=== PATIENT | female | born 1950 | race Two or more races ===

== ENCOUNTER 2022-10-27 15:55 | Emergency (ER) | payer SELFPAY ==
[~2022-10-27] VITALS: Ht 121.9 cm; Wt 78.0 kg
[2022-10-27 16:05] VITALS: BP 132/69
[2022-10-27 16:46] LABS: Basophils # (auto) 0.2 10 ^3/uL (0-0.2); Basophils % (auto) 1.8 % (0.0-2.0); Eosinophils # (auto) 0.2 10 ^3/uL (0-0.8); Hematocrit 43.8 % (36.0-46.0); Hemoglobin 15.3 g/dL (12.2-16.2); Lymphocytes % (auto) 28.3 % (10.0-50.0); Mean Corpuscular Hemoglobin 31.3 pg (28.0-32.0); Mean Corpuscular Volume 89.4 fL (80.0-100.0); Monocytes # (auto) 0.9 10 ^3/uL (0-1.3); Monocytes % (auto) 8.2 % (0.0-12.0); Neutrophils # (auto) 6.4 10 ^3/uL (1.6-8.6); Neutrophils % (auto) 59.7 % (37.0-80.0); Red Blood Cells 4.89 10^6/uL (4.0-5.20); Red Cell Distribution Width 13.5 % (11.8-14.3); White Blood Cell 10.7 10^3/uL (4.4-10.8)
[2022-10-27 16:49] LABS: Urine Bacteria NONE SEEN /hpf (None Seen); Urine Blood Negative /uL (Negative); Urine Specific Gravity 1.008 (1.001-1.035); Urine WBC 2 /hpf (0 - 5)
[2022-10-27 17:15] LABS: Albumin 3.9 g/dL (3.4-5.0); Calcium 9.1 mg/dL (8.5-10.1); Potassium 4.2 mmol/L (3.5-5.1)
[2022-10-27 17:20] LABS: Bilirubin, Total 0.7 mg/dL (0.2-1.0); Total Protein 7.3 g/dL (6.4-8.2)
== END 2022-10-27 20:48 | disposition home or self-care (01) ==
LOC: ER 15:55
DX: T50.905A Adverse effect of unspecified drugs, medicaments and biological substances, initial encounter (principal); Y92.89 Other specified places as the place of occurrence of the external cause
CPT/HCPCS: 36415; 71045; 80053; 81001; 84484; 85025; 93005

== ENCOUNTER 2023-11-17 18:39 | Emergency (ER) | payer MEDICAID, OTHER ==
[~2023-11-17] VITALS: Ht 149.9 cm; Wt 76.7 kg
[2023-11-17] MEDS ORDERED: PRED10TA PO (22:19)
[2023-11-17] MEDS ORDERED: AZIT-43 PO (22:19)
[2023-11-17] MEDS ORDERED: LORA10CA PO (22:19)
[2023-11-17] MEDS: methylPREDNISolone SOD SUCC 125 MG/2 ML VL IM ONE (22:44)
[2023-11-17] MEDS: LORATADINE 10 MG TAB PO ONE (23:00)
[2023-11-17 23:05] VITALS: BP 134/74; PULSE 88; RESP 18; TEMP 98.8; O2SAT 96
== END 2023-11-17 23:24 | disposition home or self-care (01) ==
LOC: ER 18:39
DX: T78.40XA Allergy, unspecified, initial encounter (principal); J20.9 Acute bronchitis, unspecified; J45.909 Unspecified asthma, uncomplicated; E78.5 Hyperlipidemia, unspecified; I10 Essential (primary) hypertension; Z88.0 Allergy status to penicillin
CPT/HCPCS: 96372; 99283; J2930